=== PATIENT | male | born 1950 | race Caucasian/White ===

== ENCOUNTER 2017-07-18 13:28 | Inpatient (IN) | payer BC ==
--- OUTSIDE RECORDS SUMMARY | 2017-07-18 13:31 | XMS | Continuity of Care Document ---
:1950 Author Organization [facility] Care Team Providers Name Role Phone FERNANDO LEA Primary Care Physician Insurance Providers Payer Name Policy Number Subscriber Name Relationship [id number] [place] [employer] SELF/SAME PATIENT Advance Directives Directive Response Recorded Date/Time Advance Directive? N 07/18/17 0:58am Living Will? N 07/18/17 0:58am Health Care Proxy? N 07/18/17 0:58am Healthcare Power of Magnetic Resonance Technologist? N 07/18/17 0:58am Is the patient an Organ Donor? N 07/18/17 0:58am Chief Complaint and Reason for Visit Reason for Visit PAIN IN LOWER ABD Problems Active Medical Problems Problem Onset Date Recorded Date Status Acute diverticulitis of intestine Unknown 07/18/17 Active Medications Current Home Medications Medication Dose Units Route Directions Days/Qty Instructions Start Date ASPIRIN (ASPIRIN 81 MG By Mouth EVERY DAY @ 0900 81 MG (LOW DOSE)) 81 MG TAB Temazepam 30 MG By Mouth AT BEDTIME 30 (RESTORIL 30 MG (2100) CAPSULE) 30 MG CAP ZOLPIDEM 10 MG By Mouth AT BEDTIME 30 TARTRATE (AMBIEN (2100) 10 MG TAB) 10 MG TAB Social History Problem Response Recorded Date Recreational drugs? N 07/18/17 Alcohol? Y 07/18/17 Query Response Start Date Stop Date Smoking Status: Never Smoker Hospital Discharge Instructions No hospital discharge instructions. Plan of Care Discharge Date 07/18/17 Disposition HOME/SELF CARE Condition at Discharge FAIR Instructions/Education Provided DI for Diverticulitis Forms Provided Discharge Form Prescriptions See Medications Section Referrals FERNANDO LEA - Additional Instructions/Education STRONGLY ADVISE THAT YOU GO TO HOSPITAL FOR ADMISSION TO RECEIVE IV ANTIBIOTICS. WITHOUT APPROPRIATE TREATMENT OF YOUR CONDITION, YOUR LIFE IS AT RISK. YOU ARE ALSO SUBJECT TO MULTIPLE SURGICAL PROCEDURES A RESULT INCLUDING COLOSTOMY. DELAY IN TREATMENT INCREASES THE RISKS OF BAD OUTCOMES. Functional Status No functional status results. Allergies, Adverse Reactions, Alerts No known allergies. Immunizations No Known History of Immunizations. Vital Signs Vital Reading Collection Date/Time Result Blood Pressure 07/18/17 3:17am 121/74 Temperature 07/18/17 3:17am 98 F Temperature Source 07/18/17 0:53am Oral Respiratory Rate 07/18/17 3:15am 18 Pulse Rate 07/18/17 3:17am 76 Bedside Pulse Oximetry 07/18/17 3:17am 97 Height 07/18/17 0:53am 5 ft 7 in Height 07/18/17 0:53am 170.18 cm Weight 07/18/17 0:53am 165 lb Weight 07/18/17 0:53am 74.843 kg Body Mass Index 07/18/17 0:53am 25.8 kg/m2 Results Laboratory Results Test Name Result Units Flags Reference Collection Result Comments Date/Time Date/Time Urine Color YELLOW YELLOW 07/18/17 07/18/17 1:15am 1:29am Urine Appearance CLEAR CLEAR 07/18/17 07/18/17 1:15am 1:29am Urine Glucose NEGATIVE mg/dL NEGATIVE 07/18/17 07/18/17 1:15am 1:29am Urine Bilirubin NEGATIVE NEGATIVE 07/18/17 07/18/17 1:15am 1:29am Urine Ketones 40 A NEGATIVE 07/18/17 07/18/17 1:15am 1:29am Urine Specific 1.020 1.002-1.03 07/18/17 07/18/17 [place] 0 1:15am 1:29am Urine Blood TRACE A NEGATIVE 07/18/17 07/18/17 1:15am 1:29am Urine pH 6.5 4.5-8.0 07/18/17 07/18/17 1:15am 1:29am Urine Protein NEGATIVE mg/dL NEGATIVE 07/18/17 07/18/17 1:15am 1:29am Urine Urobilinogen 0.2 E.U./d 0.2 07/18/17 07/18/17 L 1:15am 1:29am Urine Nitrite NEGATIVE NEGATIVE 07/18/17 07/18/17 1:15am 1:29am Urine Leukocyte NEGATIVE NEGATIVE 07/18/17 07/18/17 Esterase 1:15am 1:29am Urine Microscopic YES NO 07/18/17 07/18/17 Indicated 1:15am 1:29am Urine RBC 3-5 /hpf A 0-2 07/18/17 07/18/17 1:15am 1:42am Urine WBC NONE SEEN /hpf 0-2 07/18/17 07/18/17 1:15am 1:42am Urine Epithelial 0-2 /hpf 0-2 07/18/17 07/18/17 Cells 1:15am 1:42am Urine Bacteria NEGATIVE /hpf NEG 07/18/17 07/18/17 1:15am 1:42am White Blood Count 11.5 X 10^3 H 4.8-10.8 07/18/17 07/18/17 0:58am 1:14am Red Blood Count 4.37 X 10^6 L 4.70-6.00 07/18/17 07/18/17 0:58am 1:14am Hemoglobin 13.8 g/dL 13.5-17.5 07/18/17 07/18/17 0:58am 1:14am Hematocrit 42.5 % 42.0-52.0 07/18/17 07/18/17 0:58am 1:14am Mean Corpuscular 97.3 fl 80.0-100.0 07/18/17 07/18/17 Volume 0:58am 1:14am Mean Corpuscular 31.6 pg H 27.0-31.0 07/18/17 07/18/17 Hemoglobin 0:58am 1:14am Mean Corpuscular 32.5 g/dl 32.0-36.0 07/18/17 07/18/17 Hgb Concent Diff 0:58am 1:14am Red Cell 10.8 % L 11.5-14.5 07/18/17 07/18/17 Distribution Width 0:58am 1:14am Platelet Count 271 X 10^3 130-400 07/18/17 07/18/17 0:58am 1:14am Mean Platelet 8.4 fl 7.4-10.4 07/18/17 07/18/17 Volume 0:58am 1:14am Granulocytes (%) 78.8 % H 50.0-75.0 07/18/17 07/18/17 0:58am 1:14am Lymphocytes % 15.4 % L 20.0-40.0 07/18/17 07/18/17 0:58am 1:14am Mid Range Cells % 5.8 % 0.1-24.0 07/18/17 07/18/17 (auto) 0:58am 1:14am Granulocytes # 9.1 X 10^3 H 1.8-6.4 07/18/17 07/18/17 0:58am 1:14am Lymphocytes # 1.8 X 10^3 1.2-3.6 07/18/17 07/18/17 0:58am 1:14am Mid Range Cells # 0.7 X 10^3 0.0-1.8 07/18/17 07/18/17 (auto) 0:58am 1:14am Manual NO 07/18/17 07/18/17 Differential 0:58am 1:14am Sodium Level 134 mmol/L L 135-144 07/18/17 07/18/17 0:58am 1:27am Potassium Level 3.9 mmol/L 3.5-5.1 07/18/17 07/18/17 0:58am 1:27am Chloride Level 103 mmol/L 101-111 07/18/17 07/18/17 0:58am 1:27am Carbon Dioxide 23 mmol/L 22-32 07/18/17 07/18/17 Level 0:58am 1:27am Anion Gap 11.9 mmol/L 10-20 07/18/17 07/18/17 0:58am 1:27am Random Glucose 97 mg/dL 70-109 07/18/17 07/18/17 Random glucose > 200 mg/dL in a patient with typical 0:58am 1:27am symptoms of diabetes (polydipsia, polyuria and unexplained weight loss) satisfies ADA criteria for diabetes mellitus if confirmed by repeat testing on another day. Confirmation is unnecessary when acute metabolic decompensation with hyperglycemia is manifested. Reference: Report of the Expert Committee on the Diagnosis and Classification of Diabetes Mellitus. Diabetes Care, 20:1183, 1997. Creatinine 0.9 mg/dL 0.61-1.24 07/18/17 07/18/17 0:58am 1:27am EGFR Note 84.7 59.3-175.8 07/18/17 07/18/17 eGFR (Estimated Glomerular Filtration Rate) 0:58am 1:27am Reference Range: >60 ml/min/1.73m eGFR calculation value obtained using the MDRD equation. The reportable reference ranges is recommended to be greater than 60 ml/min/1.73m. This is an estimation of the patient's GFR and clinical correlation is recommended. Blood Urea 10 mg/dL 8-26 07/18/17 07/18/17 Nitrogen 0:58am 1:27am Calcium Level 8.8 mg/dL L 8.9-10.3 07/18/17 07/18/17 0:58am 1:27am Albumin 3.9 g/dL 3.5-5.0 07/18/17 07/18/17 0:58am 1:27am Total Bilirubin 1.0 mg/dL 0.3-1.2 07/18/17 07/18/17 0:58am 1:27am Alkaline 16 IU/L L 32-91 07/18/17 07/18/17 Phosphatase 0:58am 1:27am Total Protein 7.0 g/dL 6.5-8.1 07/18/17 07/18/17 0:58am 1:27am Alanine 13 IU/L 7-55 07/18/17 07/18/17 Aminotransferase 0:58am 1:27am (ALT/SGPT) Aspartate Amino 31 IU/L 15-41 07/18/17 07/18/17 Transf (AST/SGOT) 0:58am 1:27am Amylase Level 82 U/L 36-128 07/18/17 07/18/17 0:58am 1:27am Globulin 3.1 g/dL 2.3-3.5 07/18/17 07/18/17 0:58am 1:27am Albumin/Globulin 1.3 1.2-2.2 07/18/17 07/18/17 Ratio 0:58am 1:27am [facility] [employer] [id number] / [id number] [place], [place] [id number] 67 / M Adm: History of Pres Illness General Chief Complaint Gastrointestinal (M.ER) Stated Complaint PAIN IN LOWER ABD Date seen by MD 07/18/17 Time seen by 230 Source patient History limited by no limitations, poor historian Reviewed nurses notes, vital signs, home medications, allergies History of Present Illness Initial Comments PT WITH A HISTORY OF LOWER ABDOMINAL CRAMPING FOR THE PAST 3 DAYS. POS. NAUSEA WITH-OUT EMESIS. STOOLS MAY HAVE DECREASED IN CALIBER SIZE. PT STATES"I THOUGHT THAT WAS NORMAL". HAD LOOSE STOOL 2 DAYS AGO. HAD SOLID STOOL YESTERDAY EVENING. PT HAS HAD PROBLEMS LIKE THIS BEFORE. PT IS A VERY POOR HISTORIAN AND IS NOT PARTICULARLY COOPERATIVE. Allergies Coded Allergies: No Known Drug Allergy (11/07/12) Prescriptions Reported Medications Temazepam (RESTORIL 30 MG CAPSULE) 30 MG PO QHS #30 ZOLPIDEM TARTRATE (AMBIEN 10 MG TAB) 10 MG PO QHS #30 ASPIRIN (ASPIRIN 81 MG (LOW DOSE)) 81 MG PO DAILY Review of Systems Constitutional denies no symptoms reported, denies see HPI, denies chills, denies diaphoresis, denies fever , denies malaise, denies weakness, denies other EENTM denies no symptoms reported, denies see HPI, denies eye pain, denies blurred vision, denies tearing, denies double vision, denies ear pain, denies ear discharge, denies nose pain, denies nose congestion, denies throat pain, denies throat swelling, denies mouth pain, denies mouth swelling, denies other Respiratory denies no symptoms reported, denies see HPI, denies cough, denies orthopnea, denies shortness of breath, denies SOB with exertion, denies SOB at rest, denies stridor, denies wheezing, denies other Cardiovascular denies no symptoms reported, denies see HPI, denies chest pain, denies edema, denies irregular heart rate, denies lightheadedness, denies palpitations, denies syncope, denies other Gastrointestinal abdominal pain, diarrhea, nausea Genitourinary denies no symptoms reported, denies see HPI, denies burning, denies dysuria, denies discharge, denies frequency, denies flank pain, denies hematuria, denies incontinence, denies pain, denies urgency, denies other Musculoskeletal denies no symptoms reported, denies see HPI, denies back pain, denies gout, denies joint pain, denies joint swelling, denies muscle pain, denies muscle stiffness, denies neck pain, denies other Skin denies no symptoms reported, denies see HPI, denies change in color, denies change in hair/ nails, denies dryness, denies lesions, denies lumps, denies rash, denies other Psychiatric/Neurological denies no symptoms reported Hematologic/Lymphatic denies no symptoms reported, denies see HPI, denies anemia, denies blood clots, denies easy bleeding, denies easy bruising, denies swollen glands, denies other All Other Systems Reviewed and Negative Past History History unobtainable due to poor historian Past Medical History Past Medical History Hyperlipidemia. Other Medical Hx CHOLESTEROL INSOMNIA FURTHER QUESTIONING JUST PRIOR TO PT LEAVING ED INDICATED THAT HE HAS HAD PRIOR BOUTS OF DIVERTICULITIS AND MANAGED AN OUTPATIENT. Surgical History HIP REPLACEMENT. Family History Significant Family History no pertinent family hx Social History Smoking Status: Never Smoker Alcohol Use occasionally Physical Exam Physical Exam General Appearance mild distress, WD/WN EENT PERRL/EOMI, normal ENT inspection, pharynx normal Neck normal inspection, appropriate ROM, non-tender, neg meningeal signs, supple , no masses Respiratory chest non-tender, lungs clear, normal breath sounds, normal inspection, no respiratory distress Cardiovascular regular rate/rhythm, no edema, no JVD, no murmur/rub/gallop, normal peripheral pulses Gastrointestinal soft, guarding, rebound, tenderness, TENDERNESS IS IN SUPRAPUBIC REGION. BS ARE RARE. Back normal inspection, appropriate ROM, no CVA tenderness, no vertebral tenderness Extremities non-tender, normal range of motion, normal inspection Neurologic/Psychiatric alert, appropriate mood/affect, no motor/sensory deficits , oriented x 3 Skin normal color, normal inspection, warm/dry Reviewed and agree with triage nurses notes Progress Vitals Vital Signs Date Time Temp Pulse Resp B/P B/P Pulse O2 O2 Flow FiO2 Mean Ox Delivery Rate 09/27 0053 98.2 76 127/78 96 Lab and Rad Results& Orders Laboratory Tests 07/18 07/18 Range/Units 0058 0115 Chemistry Sodium 134 L 135 - 144 mmol/L Potassium 3.9 3.5 - 5.1 mmol/L Chloride 103 101 - 111 mmol/L Carbon Dioxide 23 22 - 32 mmol/L Anion Gap 11.9 10 - 20 mmol/L BUN 10 8 - 26 mg/dL Creatinine 0.9 0.61 - 1.24 mg/dL Random Glucose 97 70 - 109 mg/dL Calcium 8.8 L 8.9 - 10.3 mg/dL Total Bilirubin 1.0 0.3 - 1.2 mg/dL AST 31 15 - 41 IU/L ALT 13 7 - 55 IU/L Alkaline Phosphatase 16 L 32 - 91 IU/L Total Protein 7.0 6.5 - 8.1 g/dL Albumin 3.9 3.5 - 5.0 g/dL Globulin 3.1 2.3 - 3.5 g/dL Albumin/Globulin Ratio 1.3 1.2 - 2.2 Amylase 82 36 - 128 U/L EGFR Note 84.7 59.3 - 175.8 Hematology WBC 11.5 H 4.8 - 10.8 X 10^3 RBC 4.37 L 4.70 - 6.00 X 10^6 Hgb 13.8 13.5 - 17.5 g/dL Hct 42.5 42.0 - 52.0 % MCV 97.3 80.0 - 100.0 fl MCH 31.6 H 27.0 - 31.0 pg MCHC Differential 32.5 32.0 - 36.0 g/dl RDW 10.8 L 11.5 - 14.5 % Plt Count 271 130 - 400 X 10^3 MPV 8.4 7.4 - 10.4 fl Gran % 78.8 H 50.0 - 75.0 % Mid Range % (Auto) 5.8 0.1 - 24.0 % Gran # 9.1 H 1.8 - 6.4 X 10^3 Mid Range # 0.7 0.0 - 1.8 X 10^3 Manual Differential NO Lymphocytes % 15.4 L 20.0 - 40.0 % Lymphocytes # 1.8 1.2 - 3.6 X 10^3 Urines Urine Color YELLOW YELLOW Urine Appearance CLEAR CLEAR Urine pH 6.5 4.5 - 8.0 Ur Specific [place] 1.020 1.002 - 1.030 Urine Protein NEGATIVE NEGATIVE mg/dL Urine Ketones 40 A NEGATIVE Urine Blood TRACE A NEGATIVE Urine Nitrite NEGATIVE NEGATIVE Urine Bilirubin NEGATIVE NEGATIVE Urine Urobilinogen 0.2 0.2 E.U./dL Ur Leukocyte Esterase NEGATIVE NEGATIVE Ur Microscopic Indic YES NO Urine RBC 3-5 A 0 - 2 /hpf Urine WBC NONE SEEN 0 - 2 /hpf Ur Epithelial Cells 0-2 0 - 2 /hpf Urine Bacteria NEGATIVE NEG /hpf Urine Glucose NEGATIVE NEGATIVE mg/dL Orders Procedure Date/time Status IV INSERTION AND MANAGEMENT 07/18 0139 Active Z UA (URINALYSIS) 07/18 0115 Complete Z CMP (Comp Metabolic Panel) 07/18 58 Complete Z CBC 07/18 58 Complete Z AMYLASE 07/[address] ABD& PELVIS WO CONTRAST 07/18 58 Active Details of Miscellaneous Nursing Order: XRAY Comments CT SCAN ABD--DIFFUSE DIVERTICULITIS OF PROXIMAL AND MID SECTIONS OF SIGMOID COLON. THERE IS EVIDENCE OF WALL THICKENING, POSS. PHLEGMON. NO OBVIOUS ABSCESS OR FREE AIR. Departure Departure Time of Disposition 0305 Disposition AGAINST MEDICAL ADVICE Clinical Impression Primary Impression: Acute diverticulitis of intestine Secondary Impressions: SUPRAPUBIC ABDOMINAL TENDERNESS Admission Status Acute Inpatient Condition FAIR Patient Instructions DI for Diverticulitis Additional Instructions STRONGLY ADVISE THAT YOU GO TO HOSPITAL FOR ADMISSION TO RECEIVE IV ANTIBIOTICS. WITHOUT APPROPRIATE TREATMENT OF YOUR CONDITION, YOUR LIFE IS AT RISK. YOU ARE ALSO SUBJECT TO MULTIPLE SURGICAL PROCEDURES A RESULT INCLUDING COLOSTOMY. DELAY IN TREATMENT INCREASES THE RISKS OF BAD OUTCOMES. Comments PT STARTED ON ZOSYN AND FLAGYL. PT ADVISED TO BE ADMITTED TO HOSPITAL FOR FURTHER TREATMENT WITH IV ANTIBIOTICS. HE REFUSES TO GO TO [place]. HIS PHYSICIAN IS DR. LEA IN [facility]. HE STATES THAT HE WANTS TO WAIT TILL MORNING TO SEE HIM. THE RISKS AND CONSEQUENCES INCLUDING HAVE BEEN EXPLAINED TO PATIENT. HE STILL REFUSES TRANSFER TO [facility] FOR TREATMENT AT THIS TIME. Report created by: TOM 07/18/17 0149 Report electronically signed by: Dewayne Allen 07/18/17 0317<<Signature on File> > Report cosigned by: Procedures No Known History of Procedures. Encounters Encounter Location Arrival/Admit Date Discharge/Depart Date Attending Provider Departed [place] 07/18/17 0:42am 07/18/17 3:17am Dewayne Allen [facility] Encounter Diagnosis Onset Date Acute diverticulitis of intestine
[2017-07-18] MEDS ORDERED: Ondansetron HCl/PF 4 MG/2 ML Vial ONE (15:10)
[2017-07-18 15:56] VITALS: BMI 26.3
[2017-07-18] MEDS ORDERED: Morphine Sulfate 2 MG/ML SYRINGE SLOW IVP PRN (16:02)
[2017-07-18] MEDS ORDERED: Ondansetron HCl/PF 4 MG/2 ML Vial IVP PRN (16:02)
[2017-07-18] MEDS ORDERED: Acetaminophen 325 MG TAB PO PRN (16:02)
[2017-07-18] MEDS: Sodium Chloride 0.9% 1,000 ML IV SCH (17:09)
[2017-07-18] MEDS: Ampicillin/Sulbactam 3 GM in Sodium Chloride 0.9% 100 ML IVPB SCH ×2 (17:17→23:52)
[2017-07-18] MEDS ORDERED: HYDROcodone/Acetaminophen 10/325 mg Tablet PO PRN (17:37)
[2017-07-18] MEDS ORDERED: HYDROcodone/Acetaminophen 5/325 mg Tablet PO PRN (17:37)
--- NOTE | 2017-07-18 21:32 | HP-2 ---
DATE OF ADMISSION: 07/18/2017 PRIMARY CARE PHYSICIAN: Dr. Carr. CODE STATUS: FULL. ATTENDING PHYSICIAN: Dr. Enrico Powlel. RESIDENT: Dr. Miguel Ángel Morse. CHIEF COMPLAINT: Abdominal pain. HISTORY OF PRESENT ILLNESS: A 67-year-old male with history of diverticulosis who presents with 3 d ays of abdominal pain, mostly in the left lower part of the abdomen. He has had few days of diarrhe a, a little bit of nausea, minimal vomiting. The patient has not had any food in the last 36 hours, but has able to drink some fluids during this time. The patient denies bloody bowel movements. Be fore diarrhea, the patient had normal bowel movements, no blood or dark stools. The patient was seen in an outpatient ER the previous day, had CT that showed diverticulosis with no abscess, had recommended admission at that time, but he wanted to be seen by his primary care physi alonso. Today, he went to Dr. Carr's office, saw one of his partners, and they recommended to come b ack to the ER. The patient then went to [facility], leukocytosis was now at 17,000 , previously 11,000. The patient was given morphine Unasyn and started on normal saline at 150, tra nsferred to [facility]. PAST MEDICAL HISTORY: Diverticulosis, hyperlipidemia. PAST SURGICAL HISTORY: 1. Right shoulder surgery. 2. Spinal fusion. 3. Left total hip arthroplasty. 4. Colonoscopy showing diverticulosis 5 years ago. ALLERGIES: None. MEDICATIONS: None. FAMILY HISTORY: 1. Mother of ovarian cancer. 2. Father of cancer, unknown. SOCIAL HISTORY: Patient was a half-pack a day smoker for about 10 years, but quit 30 years ago. Al cohol: Less than 1 drink per month. Drugs: No recreational drugs. Occupation: territory sales manager medical . Status: . REVIEW OF SYSTEMS: Negative for fever and chills. Positive for nausea, vomiting, diarrhea. Negati ve for constipation. Positive for abdominal pain and GI bleed. Otherwise, 12-point review of syste ms is negative. PHYSICAL EXAMINATION: VITAL SIGNS: Blood pressure 138/83, pulse 69, respiratory rate 18, T-max 98.1, pulse ox 96% on room air. GENERAL: The patient is alert and oriented x4. Well-developed and appropriately interactive. HEENT: Eyes: PERRLA, EOMI. Conjunctivae within normal limits. ENT: Shows normal nasal mucosa and oropharynx. NECK: Supple, without lymphadenopathy, no thyromegaly or bruits. CARDIOVASCULAR: Regular rate and rhythm without murmurs or gallops. Radial pulses 2+, pedal pulses 2+. RESPIRATORY: Normal effort without retractions. Clear to auscultation bilaterally. SKIN: Warm and dry without cyanosis or lesions. ABDOMEN: Soft, but tender to palpation in left lower quadrant. Bowel sounds were normal x4. No ma ss or distention. No rebound tenderness, no guarding. EXTREMITIES: No clubbing, cyanosis or edema. MUSCULOSKELETAL: Structure and tone within normal limits. Strength is 5/5. NEUROLOGIC: No focal deficits. Sensation within normal limits. PSYCHIATRIC: The patient is appropriate. LABORATORY DATA: White blood cell count 17.3, hemoglobin 14.8, hematocrit 45.2, platelets of 273. Sodium 138, potassium 4.1, chloride 104, bicarbonate 23, BUN 10, creatinine 0.99, glucose 96. UA wa s negative for nitrites, leukocyte esterase, and white blood cells. Bacteria was negative. IMAGING: CT of the abdomen showed diverticulosis in the sigmoid and descending colon and diverticul itis acute in the sigmoid colon. No abscesses or free air was seen. ASSESSMENT AND PLAN: Diverticulitis of the sigmoid colon, severe pain and rise in leukocytosis, ind ication for inpatient treatment. This diagnosis was confirmed on CT, no abscesses or free air seen. We will continue fluids, continue Unasyn. We will prescribe morphine p.r.n. for pain. We will st art clear liquid diet. History and physical exam as well as management discussed with Dr. Enrico Powell, who is in [facility].
--- NOTE | 2017-07-19 01:02 | HP ---
DATE OF CONSULTATION: 07/18/2017 CHIEF COMPLAINT: Abdominal pain. HISTORY OF PRESENT ILLNESS: This is a 67-year-old male with history of diverticulosis and diverticulitis, presents with right and left lower quadrant pain, left worse than right that is achy in nature, does not radiate with associated diarrhea that is worse with pressure and movement, with subjective chills and no fevers. He has been hurting all day today. He went to ER in [place] since he currently left because he did not want to be admitted to the hospital. It sounds like he went to his PCP who told him he need to go to the ER and when he went to the ER, they told him we want to admit you but we do not have a surgeon available, so he needed to go somewhere else. He subsequently came to [place] [facility] and was admitted. Currently his pain is 04/ 10 after receiving morphine and he appears comfortable. PAST MEDICAL HISTORY: Positive for diverticulitis, hyperlipidemia. PAST SURGICAL HISTORY: Right rotator cuff repair and ACL repair, left hip replacement, and spinal fusion. ALLERGIES: No known drug allergies. MEDICATIONS: None. FAMILY HISTORY: Only positive for ovarian cancer in mother. SOCIAL HISTORY: He actually does not smoke, drink or do any drugs. He is a warehouse clerk, he is . REVIEW OF SYSTEMS: No fever or chills. Eyes: No vision changes or eye pain. ENT: No rhinorrhea or sore throat. Respiratory: Without cough or congestion. Cardiovascular: No chest pain or palpitations. Gastrointestinal: Positive nausea, vomiting, diarrhea, and abdominal pain as per HPI. : Negative for dysuria, urgency. Skin: Without rash or lesions. Musculoskeletal: Positive for some chronic pain related to his previous surgeries. No tenderness. Neurologic: No weakness or numbness. Psychiatric: No anxiety or depression. PHYSICAL EXAMINATION: VITAL SIGNS: Temperature is 98.9, pulse 86, respirations 18. O2 sat on room air is 95%, blood pressure 148/83. GENERAL: No acute distress, resting comfortably in bed. EYES: Without icterus or injection. ENT: Moist mucous membranes. Pinna is normal. Nares patent. NECK: Trachea midline and mobile. CARDIOVASCULAR: Regular rate and rhythm without murmur, gallops, or rubs. LUNGS: Clear to auscultation bilaterally without wheezes, rales, or rhonchi. GASTROINTESTINAL: Bowel sounds positive. At the time of palpation in both lower quadrants, no obvious guarding, rigidity, or peritoneal signs. : Deferred. MUSCULOSKELETAL: Without any deformity or fracture. SKIN: Without lesion or wound. NEUROLOGIC: His motor is 5/5 throughout. Sensation is intact to light touch throughout. PSYCHIATRIC: Mood and affect is consistent with current medical status. LABORATORY DATA: White count is 17.3 with 84% neutrophils, hemoglobin 14.8, platelets 273. Sodium 138, potassium 4.1, chloride 104, bicarbonate 23, BUN 10 , creatinine 0.99, glucose 96, calcium 9.1, total bilirubin 0.9, AST 19, ALT 17 , alkaline phosphates 18. Reported CT demonstrated sigmoid diverticulitis without any discrete abscess. ASSESSMENT AND PLAN: 1. Diverticulitis. We will continue Unasyn in light of his severe pain. He can have clear liquids and medications, nontoxic and he received outside dose, we will not draw blood cultures at this time. Morphine for pain control, but he actually says that he prefers pills so, we will add on [place] p.r.n. 2. Deep venous thrombosis prophylaxis with sequential compression devices. 3. Gastrointestinal prophylaxis with diet/clear liquids, advanced as tolerated. MTDD
[2017-07-19] MEDS: Sodium Chloride 0.9% 1,000 ML IV SCH ×4 (01:04→21:20)
[2017-07-19 05:27] LABS: #Basophils 0.1 thou/uL (0.0-0.2); #Eosinphils 0.1 thou/uL (0.0-0.7); #Lymphocytes 2.4 thou/uL (1.20-3.40); #Monocytes 1.1 thou/uL (0.11-0.59); #Neutrophils 11.2 thou/uL (1.40-6.50); %Basophils 0.4 % (0.0-1.0); %Eosinophils 0.7 % (0.0-10.0); %Lymphocytes 16.2 % (21.0-51.0); %Monocytes 7.3 % (0.0-10.0); Hematocrit 41.5 % (42.0-52.0); White Blood Cell (WBC) Count 14.9 thou/uL (4.8-10.8)
[2017-07-19 05:53] LABS: Anion Gap 12 mmol/L (10-20); BUN (Urea Nitrogen) 7 mg/dL (8.4-25.7); Calc. Creatinine Clearance 87 mL/min (70-130); Calcium 8.3 mg/dL (7.8-10.44); Carbon Dioxide 25 mmol/L (23-31); Chloride 105 mmol/L (98-107); Estimated GFR-MDRD 84
--- NOTE | 2017-07-19 06:44 | PDOC.FM ---
- Subjective Subjective: Patient states the pain is improved. He denies chest pain, sob, n/v/d. He states that he hasn't had a bowel movement, but he is passing gas. He does note some different type pain that he describes as a crampy pain associated with the gas. He denies any other complaints at this time. - Objective Vital Signs & Weight: Vital Signs (12 hours) Temp Pulse Resp BP Pulse Ox 07/19/17 04:00 99.1 F 68 18 103/69 96 07/19/17 00:00 99.5 F 76 18 117/72 93 L 07/18/17 20:00 99.5 F 79 18 108/65 94 L Weight Weight 76.204 kg Result Diagrams: 07/19/17 05:01 07/19/17 05:01 <Eddie Farias - Last Filed: 07/19/17 06:49> - Objective Vital Signs & Weight: Vital Signs (12 hours) Temp Pulse Resp BP Pulse Ox 07/19/17 08:00 99.2 F 68 16 100/61 94 L 07/19/17 04:00 99.1 F 68 18 103/69 96 07/19/17 00:00 99.5 F 76 18 117/72 93 L Weight Weight 76.204 kg Result Diagrams: 07/19/17 05:01 07/19/17 05:01 <Wade Spencer - Last Filed: 07/19/17 11:13> Phys Exam - Physical Examination HEENT: PERRLA, moist MMs Neck: no nodes, supple Respiratory: no wheezing, clear to auscultation bilateral Cardiovascular: RRR, no significant murmur Gastrointestinal: soft, no distention, positive bowel sounds Tenderness to palpation in LLQ associated with rebound, no guarding Musculoskeletal: no edema, pulses present Neurological: non-focal, normal sensation, moves all 4 limbs Psychiatric: normal affect, A&O x 3 Skin: no rash <Eddie Farias - Last Filed: 07/19/17 06:49> Dx/Plan (1) Diverticulitis large intestine w/o perforation or abscess w/o bleeding Code(s): K57.32 - DVTRCLI OF LG INT W/O PERFORATION OR ABSCESS W/O BLEEDING Status: Acute Plan: -Did not note any bloody BMs -CT scan did not show perforation or abscess -Clinically improving. -Continue Unasyn, will consider changing to Metronidazole & Ciprofloxacin as an outpatient if needed. -last colonoscopy 5 years ago showed diverticulosis. -WBC 14.9 - Plan Plan: WBC trending down, pain under better control, will monitor PO intake and pain control and discharge planning will be made from there. <Eddie Farias - Last Filed: 07/19/17 06:49> Attending Addendum - Attending Addendum I personally evaluated the patient and discussed the management with Dr. Farias. I agree with the History, Examination, Assessment and Plan documented above with any addition or exceptions noted below. Patient doing improved this morning. Reports less pain and is tolerating clear liquids without issue. Abx regimen has been changed to more appropriate regimen that will adequately cover GI anaerobes. Continue abx for now as well as IV fluid therapy and pain control. Will slowly advance diet as tolerated with hopeful transition to oral abx tomorrow. <Wade Spencer - Last Filed: 07/19/17 11:13>
[2017-07-19] MEDS: Ampicillin/Sulbactam 3 GM in Sodium Chloride 0.9% 100 ML IVPB SCH (06:52)
[2017-07-19] MEDS ORDERED: Simethicone Chewable 80 MG TAB PO PRN (10:42)
[2017-07-19] MEDS: metroNIDAZOLE 500 MG in Premix Bag 1 BAG IVPB SCH ×2 (13:45→22:20)
[2017-07-20] MEDS: Sodium Chloride 0.9% 1,000 ML IV SCH ×2 (02:05→08:42)
[2017-07-20 04:40] LABS: #Basophils 0.1 thou/uL (0.0-0.2); #Eosinphils 0.3 thou/uL (0.0-0.7); #Monocytes 0.9 thou/uL (0.11-0.59); %Basophils 0.6 % (0.0-1.0); %Eosinophils 2.6 % (0.0-10.0); %Monocytes 7.7 % (0.0-10.0); Mean Platelet Volume 7.9 fL (7.4-10.4); Red Blood Cell (RBC) Count 3.92 mill/uL (4.70-6.10); White Blood Cell (WBC) Count 11.2 thou/uL (4.8-10.8)
[2017-07-20] MEDS: metroNIDAZOLE 500 MG in Premix Bag 1 BAG IVPB SCH (04:51)
[2017-07-20 05:00] LABS: Anion Gap 12 mmol/L (10-20); BUN (Urea Nitrogen) 7 mg/dL (8.4-25.7); Calc. Creatinine Clearance 99 mL/min (70-130); Calcium 8.2 mg/dL (7.8-10.44); Carbon Dioxide 23 mmol/L (23-31); Chloride 106 mmol/L (98-107); Estimated GFR-MDRD Greater than 90
--- NOTE | 2017-07-20 06:57 | PDOC.FM ---
- Subjective Subjective: Patient had a good night, but didn't get much rest. His abdominal pain is further improved. He denies fever, chills, n/v/d. He has not had a BM, but is passing gas. He states he was able to tolerate PO, but didn't like the food here much. He has no other complaints at this time. - Objective Vital Signs & Weight: Vital Signs (12 hours) Temp Pulse Resp BP Pulse Ox 07/19/17 20:00 98.7 F 66 16 130/79 95 Weight Weight 76.204 kg Result Diagrams: 07/20/17 04:15 07/20/17 04:15 <Eddie Farias - Last Filed: 07/20/17 08:44> - Objective Vital Signs & Weight: Vital Signs (12 hours) Temp Pulse Resp BP Pulse Ox 07/20/17 12:53 98.2 F 53 L 17 111/63 96 07/20/17 08:00 98.5 F 57 L 16 97 07/20/17 07:43 98.5 F 57 L 16 110/60 97 Weight Weight 76.204 kg I&O: 07/19/17 07/20/17 07/21/17 06:59 06:59 06:59 Intake Total 100 Balance 100 Result Diagrams: 07/20/17 04:15 07/20/17 04:15 <Wade Spencer - Last Filed: 07/20/17 14:37> Phys Exam - Physical Examination HEENT: PERRLA, moist MMs Neck: no nodes, no JVD, supple Respiratory: no wheezing, clear to auscultation bilateral Cardiovascular: RRR, no significant murmur Gastrointestinal: soft, no distention, positive bowel sounds Tenderness to RLQ, rebound is present, no guarding or acute abdomen Musculoskeletal: no edema, pulses present Neurological: normal sensation, moves all 4 limbs Psychiatric: normal affect, A&O x 3 <Eddie Farias - Last Filed: 07/20/17 08:44> Dx/Plan (1) Diverticulitis large intestine w/o perforation or abscess w/o bleeding Code(s): K57.32 - DVTRCLI OF LG INT W/O PERFORATION OR ABSCESS W/O BLEEDING Status: Acute Plan: -Did not note any bloody BMs -CT scan did not show perforation or abscess -Clinically improving. -Will Metronidazole & Ciprofloxacin as an outpatient if needed. -last colonoscopy 5 years ago showed diverticulosis. -WBC 11.2 -Tolerating PO intake - Plan Plan: Patient will be discharged today on oral antibiotics. <Eddie Farias - Last Filed: 07/20/17 08:44> Attending Addendum - Attending Addendum I personally evaluated the patient and discussed the management with Dr. Farias. I agree with the History, Examination, Assessment and Plan documented above with any addition or exceptions noted below. Patient doing well this morning. His pain is improved and he is not requiring pain medications. He has tolerated a GI bland diet without issue. Afebrile and WBC improving. Patient will be transitioned to oral abx today and discharged home. <Wade Spencer - Last Filed: 07/20/17 14:37>
[2017-07-20 12:54] VITALS: BP 111/63; TEMP 98.2
--- NOTE | 2017-07-20 15:11 | DIS-2 ---
DATE OF ADMISSION: 07/18/2017 DATE OF DISCHARGE: 07/20/2017 RESIDENT: Dr. Farias. ADMITTING ATTENDING: Dr. Powell. DISCHARGE ATTENDING: Dr. Spencer. CONSULTATIONS: Walking program. PROCEDURES: None. PRIMARY DIAGNOSIS: Diverticulitis of the large intestine without perforation or without abscess wit hout bleeding. DISCHARGE MEDICATIONS: 1. Ciprofloxacin 500 mg p.o. q.12 hours. 2. Metronidazole 500 mg p.o. q.8 hours. 3. Niacin 500 mg. 4. Fish oil 1000 mg. 5. Vitamin D2 600 units. 6. Vitamin C 500 mg. 7. Omeprazole 20 mg. 8. Multivitamin. 9. Zolpidem 12.5 mg. 10. Benadryl 25 mg. 11. Tizanidine 4 mg. 12. Aspirin 81 mg. DISCONTINUED MEDICATIONS: None. HISTORY OF PRESENT ILLNESS AND HOSPITAL COURSE: This is a 67-year-old male with a history of divert iculosis who presents with 3 days of abdominal pain, mostly in the left lower part of the abdomen. He has had a few days of diarrhea, a little bit of nausea, minimal vomiting. The patient has not bess d any food in the last 36 hours, but has been able to drink some fluids during this time. The patie nt denies bloody bowel movements. Before diarrhea, the patient had normal bowel movements, no blood or dark stools. The patient was seen in outpatient ER. On the previous day, he had a CT that show ed diverticulosis with no abscess. I had recommended admission at that time, but he wanted to be se en by his primary care physician. Today, he went to Dr. Carr's office, saw one of his partners and they recommend to come back to the ER. The patient then went to [facility], had a leukocytosis and it was now 17,000, previously at 11,000. The patient was given morphine, Unasyn a nd started on normal saline at 150. Transferred to [facility] at that time. Upon admission to the hospital, the patient was stable. We did provide pain control throughout hi s hospitalization, which he uses less. We also had notable lab values, his white blood cell count w as 14.9, did decrease to 11.2 on day of discharge. Relatively everything else, lab us was stable. He slowly tolerated more and more of a diet and was up to a GI mechanical soft diet by the time of discharge. He did state that he would have eat more if he would like the food, but he did not have any pain at that time. The pain slowly decreased over time as well requiring less and less pain me dication and so he will be discharged just with a recommendation to use Tylenol and ibuprofen over-t he-counter for pain as needed. He tolerated the hospitalization well and was discharged on appropri ate condition. DISPOSITION: Stable. DISCHARGE INSTRUCTIONS: 1. Location: He is going to be discharged home into his own care. Diet will be, first we will rec ommend a GI soft diet and well as bland diet to make sure that he does not upset his diverticulosis too much. 2. Activity will be as tolerated, but we do recommend that he do some restriction, as needed for pa in. We do not recommend that he overdoes it, because there is a chance that some of the pain could longer for a while and he could return to the ER because of severe pain. 3. Follow up will be with Dr. Carr in about 10 days when he finishes his antibiotic course. We wi sh him the best of luck.
== END 2017-07-20 13:35 | disposition home or self-care (01) | DRG 392 ==
LOC: ERS 13:28 → T4-B 13:59
PROVIDERS: ADMIT Family Medicine; ATTEND Family Medicine
DX: K57.32 Diverticulitis of large intestine without perforation or abscess without bleeding (principal); E78.5 Hyperlipidemia, unspecified; Z96.642 Presence of left artificial hip joint; Z98.1 Arthrodesis status; Z87.891 Personal history of nicotine dependence
CPT/HCPCS: 36415; 36416; 80048; 85025; 96374; 96375; J0295; J0744; J2270; J2405; J7050

== ENCOUNTER 2018-05-15 08:28 | Outpatient (CLI) | payer BC ==
--- NOTE | 2018-05-15 10:23 | MRI ---
MRI OF RIGHT SHOULDER PERFORMED WITHOUT CONTRAST ENHANCEMENT: History: Patient is status post rotator cuff surgery. Pain x 2 months. FINDINGS: There is an os acromiale present. Post-operative changes of the rotator cuff are present. Overall, the repair appears intact. There is only one small focus where there may be some slight discontinuity of some of the fibers of the supras pinatus tendon. There is some question of rather the anterior most anchor might be slightly proud. Th is could be more artifactual. Infraspinatus tendon is intact. There is a small amount of fluid density seen near the musculotendino us junction and this is in an area where there is a T1 and T2 hypointense area which could represent small focus of calcific deposition. There is a similar area seen within the supraspinatus tendon and a subtle focus superficial to the subscapularis tendon. This probably represents areas of hydroxyapat ite deposition. Biceps tendon is normal in position within the bicipital groove. The posterior labrum appears blunted in appearance, particularly the posterior superior labrum. The i nferior glenohumeral ligament is intact. IMPRESSION: 1. Overall fairly good appearance to the rotator cuff repair. 2. Evidence of hydroxyapatite deposition with calcific causes associated with the supraspinatus tendo n and subscapularis and infraspinatus tendon. 3. Os acromiale. 4. Irregular appearing posterior superior labrum. POS: [facility]
== END 2018-05-15 08:29 | disposition home or self-care (01) ==
LOC: TBSIIMAG 08:28
PROVIDERS: ATTEND Orthopaedic Surgery
DX: M75.101 Unspecified rotator cuff tear or rupture of right shoulder, not specified as traumatic (principal); M89.8X1 Other specified disorders of bone, shoulder; Z98.890 Other specified postprocedural states

== ENCOUNTER 2018-08-26 11:38 | Outpatient (CLI) | payer BC, MEDICARE ==
--- NOTE | 2018-08-26 13:49 | RAD ---
RIGHT RIBS TWO VIEWS: History: 68-year-old male with history of right rib fracture, S22.318A. Patient had right rib injury after a f all hitting tube with right side, now having pain. FINDINGS / IMPRESSION: No pneumothorax or pleural effusion. There are essentially nondisplaced fractures involving at least the right 8th, 9th, and 10th and possibly 11th rib. No pneumothorax. POS: [facility]
== END 2018-08-26 11:39 | disposition home or self-care (01) ==
LOC: SCSRAD 11:38
PROVIDERS: ATTEND Family Medicine
DX: S22.41XA Multiple fractures of ribs, right side, initial encounter for closed fracture (principal)

== ENCOUNTER 2025-05-15 09:17 | Outpatient (CLI) | payer MEDICARE | END 2025-05-15 09:18 | disposition home or self-care (01) | LOC: SCSMRI 09:17 | PROVIDERS: ATTEND Student in an Organized Health Care Education/Training Program | DX: M75.122 Complete rotator cuff tear or rupture of left shoulder, not specified as traumatic (principal); S43.432A Superior glenoid labrum lesion of left shoulder, initial encounter; M25.812 Other specified joint disorders, left shoulder ==

== ENCOUNTER 2025-08-05 05:00 | Day surgery (SDC) | payer MEDICARE ==
[2025-07-29 09:51] VITALS: BMI 27.3
[2025-07-29 10:46] LABS: #Basophils 0.06 10x3/uL (0.0-0.2); #Eosinophils 0.20 10x3/uL (0.0-0.7); #Monocytes 0.56 10x3/uL (0.11-0.59); #Neutrophils 3.97 10x3/uL (1.40-6.50); %Basophils 0.8 % (0.0-1.0); %Eosinophils 2.8 % (0.0-10.0); %Lymphocytes 32.4 % (21.0-51.0); %Monocytes 7.8 % (0.0-10.0); %Neutrophils 55.6 % (42.0-75.0); Hematocrit 46.5 % (42.0-52.0); Hemoglobin 15.3 g/dL (14.0-18.0); Mean Corpuscular Hemoglobin 30.2 pg (27.0-31.0); Mean Corpuscular Volume 91.9 fL (78.0-98.0); Platelet Count 265 10x3/uL (130-400); Red Blood Cell (RBC) Count 5.06 mill/uL (4.70-6.10); White Blood Cell (WBC) Count 7.14 10x3/uL (4.8-10.8)
[2025-07-29 11:04] LABS: INR-International Normal Ratio 1.0; Prothrombin Time 12.7 sec (12.0-14.7)
[2025-07-29 11:16] LABS: ALT (SGPT) 20 U/L (Less than 45); AST (SGOT) 26 U/L (11-34); Albumin 4.1 g/dL (3.1-4.5); Alkaline Phosphatase 20 U/L (40-110); Anion Gap 16 mmol/L (10-20); BUN (Urea Nitrogen) 13 mg/dL (8.4-25.7); Bilirubin, Total 0.4 mg/dL (0.3-1.2); Calc. Creatinine Clearance 0 mL/min (70-130); Calcium 9.0 mg/dL (7.8-10.44); Carbon Dioxide 19 mmol/L (23-31); Chloride 107 mmol/L (98-107); Globulin 3.3 g/dL (2.4-3.5); Glucose 99 mg/dL (83-110); Potassium 4.1 mmol/L (3.5-5.1); Sodium 138 mmol/L (136-145)
[2025-08-05] MEDS ORDERED: Lidocaine 1% PF 5 ML VIAL ONE (06:10)
[2025-08-05] MEDS ORDERED: fentaNYL PF 100 MCG/2 ML SYRINGE ONE (06:10)
[2025-08-05] MEDS ORDERED: PROPOFOL 20 ML ONE (06:10)
[2025-08-05] MEDS ORDERED: Rocuronium Bromide 10 MG/ML (10ML VIAL) ONE ×2 (06:10→10:14)
[2025-08-05] MEDS ORDERED: Tranexamic Acid 1,000 MG/10 ML VIAL ONE (06:22)
[2025-08-05] MEDS ORDERED: CEFAZOLIN 2 GM VIAL ONE (06:22)
[2025-08-05] MEDS ORDERED: Acetaminophen 500 MG TAB ONE (06:22)
[2025-08-05] MEDS ORDERED: Lidocaine 1% (PF) 30 ML VIAL ONE (06:26)
[2025-08-05] MEDS ORDERED: Ropivacaine 0.5% HCl/PF (150 MG/30 ML VIAL) ONE (06:26)
[2025-08-05] MEDS ORDERED: Ropivacaine 0.2% HCl/PF 20 ML ONE (06:26)
[2025-08-05] MEDS ORDERED: PHENYLEPHRINE-NS 100 MCG/ML 10 ML SYRINGE ONE (07:27)
[2025-08-05] MEDS ORDERED: Ropivacaine 0.2% 550 ML 550 ML NERVE BLCK SCH (07:30)
[2025-08-05] MEDS ORDERED: HYDROcodone/Acetaminophen 5/325 mg Tablet PO PRN ×2 (07:30)
[2025-08-05] MEDS ORDERED: Ondansetron PF 4 MG/2 ML Vial IVP PRN (07:30)
[2025-08-05] MEDS ORDERED: Bupivacaine 0.25% HCL 30 ML VIAL ONE (07:32)
[2025-08-05] MEDS ORDERED: Sevoflurane 250 ML INH ANEST BOTTLE ONE (07:43)
[2025-08-05] MEDS ORDERED: CEFAZOLIN 1 GM VIAL ONE (11:19)
[2025-08-05] MEDS ORDERED: Ondansetron PF 4 MG/2 ML Vial ONE (11:26)
[2025-08-05] MEDS ORDERED: SUGAMMADEX SODIUM 200 MG/2 ML VIAL ONE (11:28)
== END 2025-08-05 15:00 | disposition home or self-care (01) ==
LOC: SDC 05:00
PROVIDERS: ATTEND Student in an Organized Health Care Education/Training Program
PROC: 0LS44ZZ Reposition Left Upper Arm Tendon, Percutaneous Endoscopic Approach (ICD-10-PCS; principal; 2025-08-05)
PROC: 0LQ24ZZ Repair Left Shoulder Tendon, Percutaneous Endoscopic Approach (ICD-10-PCS; 2025-08-05)
PROC: 0RNK4ZZ Release Left Shoulder Joint, Percutaneous Endoscopic Approach (ICD-10-PCS; 2025-08-05)
DX: M75.102 Unspecified rotator cuff tear or rupture of left shoulder, not specified as traumatic (principal); M65.811 Other synovitis and tenosynovitis, right shoulder; M19.012 Primary osteoarthritis, left shoulder; I10 Essential (primary) hypertension; E78.5 Hyperlipidemia, unspecified
CPT/HCPCS: 29824; 29826; 29827; 29828; 64416; 80053; 83036; 85025; 85610; 86850; 86900; 86901; A4306; J0169; J0665; J0690; J2250; J2704; J2795 ×3; C1713